=== PATIENT | male | born 2000 | race African-American/Black ===

== ENCOUNTER 2022-07-24 20:44 | Emergency (ER) | payer OTHER, MEDICAID, SELFPAY ==
[2022-07-24 21:02] VITALS: BP 121/64; PULSE 66; RESP 15; TEMP 36.9; O2SAT 98; BMI 25.0
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
--- OUTSIDE RECORDS SUMMARY | 2022-07-24 22:22 | XMS_ITS | Continuity of Care Document ---
:2000 Author Organization [facility] Address [address] [place] [address]- Care Team Providers Name Role Phone Carlos Fisher MD Primary Care Physician Encounter [facility] [place] Date(s): 03/15/21 - 04/14/21 [facility] [address], [place] [address] Attending Physician: Admtr, Semaj8 Admitting Physician: Admtr, Ar8 Referring Physician: Admtr, Ar8 Allergies, Adverse Reactions, Alerts Substance Reaction Severity Status NKA Active Medications albuterol CFC free 90 mcg/inh inhalation aerosol 2 puffs, Inhalation, Every 4 hours, PRN for wheezing, # 18 Gm, 0 Refills, Maintenance, 05/25/15 18:39:34, Aerosol Start Date: 05/25/15 Status: OrderedAnkle Support See Instructions, # 1 each, Maintenance, Air Cast ankle immobilizer indication: sprain of foot, 06/30/13 18:03:07, Compound Start Date: 06/30/13 Status: Orderedcetirizine 10 mg oral tablet 1 tablet = 10 mg, By Mouth, Daily, # 30 tablet, 0 Refills, Maintenance, 03/15/21 14:14:00 EDT, Tablet, [facility] #[id number], Partial fill upon patient request if the prescription is for a schedule II opioid drug., 181.25, cm, 03/15/21 14:00:00... Start Date: 03/15/21 Stop Date: 04/14/21 Status: OrderedCrutches See Instructions, # 1 each, Maintenance, use as instructed indication: sprain of foot, 06/30/13 18:03:14, Compound Start Date: 10/27/13 Status: Orderedfluticasone 50 mcg/inh nasal spray 1 sprays, Nares, Both, Daily in AM, # 16 Gm, 0 Refills, Maintenance, 03/15/21 14:14:00 EDT, [place], [id number], Partial fill upon patient request if the prescription is for a schedule II opioid drug., 1 sprays Nares, Both Daily in AM,x... Start Date: 03/15/21 Stop Date: 03/29/21 Status: Ordered Social History Social History Type Response Smoking Status Never smoker entered on: 06/05/14 Sex
--- OUTSIDE RECORDS SUMMARY | 2022-07-24 22:22 | XMS_ITS | Continuity of Care Document ---
:2000 Author Organization [facility] Address [address] [place] [address]- Care Team Providers Name Role Phone Carlos Fisher MD Primary Care Physician Encounter [facility] ACCT R [id number] Date(s): 03/15/21 - 03/22/21 [facility] [address] [place] [address]- Attending Physician: Juni De Los Santos MD Referring Physician: Carlos Fisher MD Allergies, Adverse Reactions, Alerts Substance Reaction Severity [...] 0 Refills, Maintenance, 03/15/21 14:14:00 EDT, Tablet, [facility] #[id number], Partial fill upon patient request if the prescription is for a schedule II opioid drug., 181.25, cm, 03/15/21 14:00:00... Start Date: 03/15/21 Stop Date: 04/14/21 Status: OrderedCrutches See Instructions, # 1 each, Maintenance, use as instructed indication: sprain of foot, 06/30/13 18:03:14, Compound Start Date: 06/30/13 Status: Orderedfluticasone 50 mcg/inh nasal spray 1 sprays, Nares, Both, Daily in AM, # 16 Gm, 0 Refills, Maintenance, 03/15/21 14:14:00 EDT, [place], [facility] #[id number], Partial fill upon patient request if the prescription is for a schedule II opioid drug., 1 sprays Nares, Both Daily in AM,x... Start Date: 03/15/21 Stop Date: 03/29/21 Status: Ordered Vital Signs Most recent to oldest [Reference Range]: 1 Height 181.25 cm (03/15/21 2:00 PM) Oxygen Saturation [94-100 %] 100 % (03/15/21 2:00 PM) Pulse Rate [55-90 bpm] 50 bpm *L* (03/15/21 2:00 PM) Blood Pressure [71-110/30-71 mm Hg] 114/65 mm Hg *H* (03/15/21 2:00 PM) Respiratory Rate [16-30 br/min] 20 br/min (03/15/21 2:00 PM) Temperature [96.8-100.4 DegF] 98.4 DegF (03/15/21 2:00 PM) Mode of Delivery (Oxygen) Room air (03/15/21 2:00 PM) Blood pressure sites Arm, left (03/15/21 2:00 PM) Temperature Route Temporal (03/15/21 2:00 PM) Social History Social History Type Response Smoking Status Never smoker entered on: 06/05/14 Sex
--- OUTSIDE RECORDS SUMMARY | 2022-07-24 22:22 | XMS_ITS | Continuity of Care Document ---
:2002 Author Organization [facility] Address [address] [place] [address]- Care Team Providers Name Role Phone Carlos Fisher MD Primary Care Physician [place] [id number] Date(s): 05/05/22 - 05/12/22 [facility] [address] [place], [place] [address] Attending Physician: Juni De Los Santos MD Referring Physician: Carlos Fisher MD Allergies, Adverse Reactions, Alerts No Known Allergies Medications albuterol CFC free 90 mcg/inh inhalation [...] 0 Refills, Maintenance, 03/15/21 14:14:00 EDT, Tablet, [facility] #[id number], Partial fill upon patient request if the [...] Gm, 0 Refills, Maintenance, 03/15/21 14:14:00 EDT, [place], [facility] #[id number], Partial fill upon patient request if the prescription is for a schedule II opioid drug., 1 sprays Nares, Both Daily in AM,x... Start Date: 03/15/21 Stop Date: 03/29/21 Status: Orderednaproxen sodium 550 mg oral tablet 1 tablet = 550 mg, By Mouth, 2 times a day, PRN for pain, for 10 days, take with food, # 20 tablet, 0 Refills, Acute 05/15/22 14:28:00 EDT, 05/05/22 14:28:00 EDT, Tablet, [facility] #[id number], Partial fill upon patient request if the prescripti... Start Date: 05/05/22 Stop Date: 05/15/22 Status: Ordered Vital Signs Most recent to oldest [Reference Range]: 1 Height 181.25 cm (05/05/22 2:04 PM) Oxygen Saturation [94-100 %] 97 % (05/05/22 2:04 PM) Pulse Rate [55-90 bpm] 55 bpm (05/05/22 2:04 PM) Blood Pressure [90-138/55-84 mm Hg] 138/53 mm Hg (05/05/22 2:04 PM) Temperature [96.8-100.4 DegF] 97.8 DegF (05/05/22 2:04 PM) Mode of Delivery (Oxygen) Room air (05/05/22 2:04 PM) Blood pressure sites Arm, left (05/05/22 2:04 PM) Temperature Route Temporal (05/05/22 2:04 PM) Social History Social History Type Response Smoking Status Never smoker entered on: 06/05/14 Sex Care Team PersonnelName: Carlos Fisher MD Address: [address] [place] [address], [address] [facility] [address]
--- OUTSIDE RECORDS SUMMARY | 2022-07-24 22:22 | XMS_ITS | Continuity of Care Document ---
:2002 Author Organization [facility] Address [address] [place] [address]- Care Team Providers Name Role Phone Carlos Fisher MD Primary Care Physician Encounter [facility] [place] Date(s): 05/05/22 - 06/04/22 [facility] [address] [place], [place] [address] Attending Physician: Howard Moreau Admitting Physician: Admtr, Semaj8 Referring Physician: Admtr, Ar8 Allergies, Adverse Reactions, Alerts No Known Allergies [...] 0 Refills, Maintenance, 03/15/21 14:14:00 EDT, Tablet, [facility] #[id number], Partial fill upon patient request if the [...] Gm, 0 Refills, Maintenance, 03/15/21 14:14:00 EDT, [place], [facility] #[id number], Partial fill upon patient request if the prescription is for a schedule II opioid drug., 1 sprays Nares, Both Daily in AM,x... Start Date: 03/15/21 Stop Date: 03/29/21 Status: Ordered Social History Social History Type Response Smoking Status Never smoker entered on: 06/05/14 Sex Patient Care team information PersonnelName: Phillip PERKINS, Carlos Cross Address: Address: [address] [place] [address], [address] [facility] [place], [place] [address]
--- OUTSIDE RECORDS SUMMARY | 2022-07-24 22:22 | XMS_ITS | Continuity of Care Document ---
:2002 Author Organization [facility] Address [address] [place] [address]- Care Team Providers Name Role Phone Phillip PERKINS, Carlos Cross Primary Care Physician Encounter [facility] Date(s): 09/26/19 - 10/06/19 [facility] [address] [place] [address]- [facility] Attending Physician: Admtr, Semaj8 Admitting Physician: Admtr, [...] 06/30/13 18:03:07, Compound Start Date: 06/30/13 Status: OrderedCrutches See Instructions, # 1 each, Maintenance, use as instructed indication: sprain of foot, 06/30/13 18:03:14, Compound Start Date: 06/30/13 Status: Ordered Social History Social History Type Response Smoking Status Never smoker entered on: 06/05/14 Sex
--- OUTSIDE RECORDS SUMMARY | 2022-07-24 22:22 | XMS_ITS | Continuity of Care Document ---
:2002 Author Organization [facility] Address [address] [place] [address]- Care Team Providers Name Role Phone Carlos Fisher MD Primary Care Physician Encounter [facility] [place] Date(s): 01/01/20 - 01/08/20 [facility] [address] [place] [address] Attending Physician: Doreen Gonzales MD Referring Physician: Carlos Fisher MD Allergies, [...] 18:03:14, Compound Start Date: 06/30/13 Status: Ordered Vital Signs Most recent to oldest [Reference Range]: 1 Height 181.25 cm (01/01/20 5:34 PM) Weight 89.6 kg (01/01/20 5:34 PM) Oxygen Saturation [94-100 %] 99 % (01/01/20 5:34 PM) Pulse Rate [55-90 bpm] 88 bpm (01/01/20 5:34 PM) Body Mass Index [18.5-24.99] 27.27 *H* (01/01/20 5:34 PM) Blood Pressure [80-130/50-80 mm Hg] 141/68 mm Hg *H* (01/01/20 5:34 PM) Respiratory Rate [16-30 br/min] 18 br/min (01/01/20 5:34 PM) Temperature [96.8-100.4 DegF] 96.7 DegF *L* (01/01/20 5:34 PM) Mode of Delivery (Oxygen) Room air (01/01/20 5:34 PM) Blood pressure sites Arm, right (01/01/20 5:34 PM) Temperature Route Temporal (01/01/20 5:34 PM) Dry Weight 89.6 kg (01/01/20 5:34 PM) Weight Obtained Via Standing scale (01/01/20 5:34 PM) Dry Weight Obtained Via Standing scale (01/01/20 5:34 PM) Social History Social History Type Response Smoking Status Never smoker entered on: 06/05/14 Sex
--- OUTSIDE RECORDS SUMMARY | 2022-07-24 22:22 | XMS_ITS | Continuity of Care Document ---
:2002 Author Organization [facility] Address [address] [place] [address]- Care Team Providers Name Role Phone Phillip PERKINS, Carlos Cross Primary Care Physician Encounter [facility] Date(s): 01/01/20 - 01/31/20 [facility] [address] [place] [address]- [facility] Attending Physician: Admtr, Semaj8 Admitting Physician: Admtr, [...]
--- OUTSIDE RECORDS SUMMARY | 2022-07-24 22:22 | XMS_ITS | Continuity of Care Document ---
:2002 Author Organization [facility] Address [address] [place] [address]- Care Team Providers Name Role Phone Carlos Fisher MD Primary Care Physician Encounter [facility] [place] Date(s): 09/26/19 - 10/03/19 [facility] [address] [place] [address]- [facility] Attending Physician: Don Scanlon MD Referring Physician: Carlos Fisher MD Allergies, [...] oldest [Reference Range]: 1 Height 181.25 cm (09/26/19 6:37 PM) Weight 89.2 kg (09/26/19 6:37 PM) Oxygen Saturation [94-100 %] 98 % (09/26/19 6:37 PM) Pulse Rate [55-90 bpm] 77 bpm (09/26/19 6:37 PM) Body Mass Index [18.5-24.99] 27.15 *H* (09/26/19 6:37 PM) Blood Pressure [80-130/50-80 mm Hg] 127/71 mm Hg (09/26/19 6:37 PM) Respiratory Rate [16-30 br/min] 19 br/min (09/26/19 6:37 PM) Temperature [96.8-100.4 DegF] 99.9 DegF (09/26/19 6:37 PM) Mode of Delivery (Oxygen) Room air (09/26/19 6:37 PM) Blood pressure sites Arm, right (09/26/19 6:37 PM) Temperature Route Oral (09/26/19 6:37 PM) Dry Weight 89.2 kg (09/26/19 6:37 PM) Weight Obtained Via Standing scale (09/26/19 6:37 PM) Dry Weight Obtained Via Standing scale (09/26/19 6:37 PM) Social History Social History Type Response Smoking Status Never smoker entered on: 06/05/14 Sex
[2022-07-24] MEDS: Ibuprofen 800 MG TABLET PO (22:33)
[2022-07-24] MEDS: predniSONE 20 MG TABLET 60 MG PO (22:33)
== END 2022-07-25 01:28 | disposition home or self-care (01) ==
PROVIDERS: Emergency Provider Internal Medicine
DX: S39.012A Strain of muscle, fascia and tendon of lower back, initial encounter (principal); V43.52XA Car driver injured in collision with other type car in traffic accident, initial encounter; Y93.9 Activity, unspecified; Y92.410 Unspecified street and highway as the place of occurrence of the external cause; Y99.9 Unspecified external cause status
CPT/HCPCS: 99282; 99283

== ENCOUNTER 2023-01-30 00:03 | Emergency (ER) | payer MEDICAID, SELFPAY ==
--- NOTE | ~2023-01-30 | XR_ITS ---
EXAMINATION: XR HAND, RIGHT CLINICAL INFORMATION: Pain COMPARISON: None available. TECHNIQUE: PA, lateral, and oblique views of the right hand. FINDINGS: The bones and soft tissues are normal. No fracture. Alignment is anatomic. Joint spaces are maintained. No erosions or soft tissue calcifications. XR/XR hand RT min 3V IMPRESSION: Normal right hand.
[2023-01-30 00:25] VITALS: BP 136/73; PULSE 64; RESP 18; TEMP 36.5; O2SAT 98; BMI 25.0
--- NOTE | 2023-01-30 01:28 | ED.EXTPRO ---
HPI - Extremity Problem General Chief complaint: Extremity Injury, Upper Stated complaint: finger inj Time Seen by Provider: 01/30/23 00:54 Source: patient Mode of arrival: ambulatory History of Present Illness HPI Narrative: 22-year-old male seen here for injury sustained during basketball, feels like he may have dislocated his right ring finger, he then pulled on the finger and stated that it felt fine but then he noticed it started swelling. Related Data Previous Rx's Medication Instructions Recorded cyclobenzaprine 10 mg tablet 10 mg PO TID PRN muscle spasm 7 07/24/22 days #21 tabs naproxen 500 mg tablet 500 mg PO BID PRN pain 7 days #14 07/24/22 tabs prednisone 20 mg tablet 40 mg PO DAILY 5 days #10 tabs 07/24/22 Allergies Allergy/AdvReac Type Severity Reaction Status Date / Time No Known Allergies Allergy Verified 01/30/23 00:25 Review of Systems Review of Systems: Pertinent positives and negatives as stated [facility] Past Medical History Source: nursing notes reviewed Social History Social History Advance Directives: No Advance Directives Information Provided: No Physical Exam Vital Signs: Vital Signs: Last Vital Signs Temp 97.7 F 01/30/23 00:25 Pulse 64 01/30/23 00:25 Resp 18 01/30/23 00:25 BP 136/73 01/30/23 00:25 Pulse Ox 98 01/30/23 00:25 O2 Del Method Room Air 01/30/23 00:25 BMI result Body Mass Index 25.0 VITAL SIGNS: Reviewed. GENERAL: Well developed, well nourished, in no acute distress. HEAD: Normocephalic/atraumatic EYES: PERRLA, EOMI LUNGS: Normal breath sounds. No adventitious sounds or accessory muscle use. SpO2<98> CARDIOVASCULAR: Regular rate and rhythm without noted murmurs ABDOMEN: Soft, non-tender, non-distended with bowel sounds. MUSCULOSKELETAL: No tenderness, deformities, or effusions noted on gross inspection. EXTREMITIES: No cyanosis, clubbing or edema; RIGHT RING FINGER: There is some mild swelling noted at the PIP, otherwise no tenderness to palpation at the MCP or DIP. SKIN: Inspection of the skin reveals no rashes NEUROLOGIC: Alert and oriented x 4. Strength and sensation to light touch were grossly intact x 4. Medical Decision Making Medical Decision Making [facility] Narrative: This is a 22-year-old male with minor injury while playing basketball, I have reviewed the x-ray and my interpretation is there is no acute fracture or dislocation, in my opinion I think the residual swelling is likely associated with postreduction inflammation. Patient is otherwise stable, provided with combination analgesics and discharged home in stable condition. Differential Diagnosis Please see the discussion above Radiology Impression Radiologist Impression: My interpretation is in agreement with radiology's impression Discharge Plan Discharge Clinical Impression: Dislocation of finger Patient Disposition: Home, Self-Care Instructions: Finger Dislocation (ED) Additional Instructions: 1. Recommend [id number] Tylenol/ibuprofen as needed for pain control. May include ice for brief periods of time to unexposed skin. Continue to move the finger as much as possible to avoid stiffness. Return to the ER for any worsening symptoms. Prescriptions: No Action naproxen 500 mg tablet 500 mg PO BID PRN (Reason: pain) 7 Days Qty: 14 0RF prednisone 20 mg tablet 40 mg PO DAILY 5 Days Qty: 10 0RF cyclobenzaprine 10 mg tablet 10 mg PO TID PRN (Reason: muscle spasm) 7 Days Qty: 21 0RF Rx Instructions: side effect is drowsiness. Do not take at work or while driving.
[2023-01-30] MEDS: Acetaminophen 325 MG TABLET 975 MG PO (02:04)
[2023-01-30] MEDS: Ibuprofen 400 MG TABLET PO (02:05)
== END 2023-01-30 02:13 | disposition home or self-care (01) ==
PROVIDERS: Emergency Provider Student in an Organized Health Care Education/Training Program
DX: S63.254A Unspecified dislocation of right ring finger, initial encounter (principal); Y93.67 Activity, basketball; Y92.310 Basketball court as the place of occurrence of the external cause; Y99.9 Unspecified external cause status; Z79.899 Other long term (current) drug therapy
CPT/HCPCS: 73130; 99283; 99284